=== PATIENT | female | born 1975 | race Caucasian/White ===

== ENCOUNTER 2019-05-16 17:16 | Inpatient (IN) | payer MEDICAID ==
[2019-05-16] MEDS ORDERED: BUTORPHANOL 2 MG INJ IV (18:30)
[2019-05-16] MEDS ORDERED: METHYLERGONOVINE 0.2 MG INJ IM ×2 (18:30→21:30)
[2019-05-16] MEDS ORDERED: CARBOPROST 250 MCG INJ IM ×2 (18:30→21:30)
[2019-05-16] MEDS ORDERED: OXYTOCIN 30 UNITS/LR 500 ML IV ×2 (18:30→21:30)
[2019-05-16] MEDS ORDERED: MISOPROSTOL 200 MCG TAB PR ×2 (18:30→21:30)
[2019-05-16 18:52] LABS: ADD MAN DIFF? NO
[2019-05-16] MEDS: LACTATED RINGER'S 1,000 ML IV ×2 (19:00→19:34)
[2019-05-16 19:01] LABS: WHITE BLOOD COUNT 11.9 10^3/ul (4.8-10.8)
[2019-05-16 19:01] LABS: BASOPHILS % 0.3 % (0.0-2.0); EOSINOPHILS % 0.1 % (0.0-7.0); HEMATOCRIT 40.1 % (37.0-47.0); HEMOGLOBIN 13.6 g/dl (12.0-16.0); LYMPHOCYTES # 1.2 10^3/ul (0.8-2.9); LYMPHOCYTES % 10.1 % (15.0-51.0); MEAN CORPUSCULAR HGB CONC 33.9 g/dl (32.0-37.0); MEAN CORPUSCULAR VOLUME 94.4 fl (82.0-101.0); MEAN PLATELET VOLUME 9.8 fl (7.4-10.4); MONOCYTE # 0.6 10^3/ul (0.3-0.9); MONOCYTES % 5.4 % (0.0-11.0); NEUTROPHIL # 9.7 10^3/ul (1.6-7.5); NEUTROPHILS % 81.7 % (39.0-77.0); PLATELET COUNT 254 10^3/UL (140-415); RED BLOOD COUNT 4.25 10^6/ul (4.20-5.40); RED CELL DISTRIBUTION WIDTH 15.9 % (11.5-14.5)
[2019-05-16 19:21] LABS: INR 0.98; PROTIME 13.1 Sec (11.9-14.9)
[2019-05-16 19:22] LABS: PARTIAL THROMBOPLASTIN TIME 25.9 Sec (23.0-35.0)
[2019-05-16] MEDS ORDERED: FENTAnyl 2MCG/ML-ROPIV 0.2% 100 ML (19:42)
[2019-05-16] MEDS ORDERED: FENTAnyl 50 MCG/ML VIAL (19:42)
[2019-05-16 19:54] LABS: HEPATITIS B SURFACE ANTIGEN NEGATIVE (NEGATIVE)
[2019-05-16] MEDS ORDERED: FENTAnyl 2MCG/ML-ROPIV 0.2% 100 ML BAG EPI (20:30)
[2019-05-16] MEDS ORDERED: NALOXONE (0.4 MG/ML) INJ IV (20:30)
[2019-05-16] MEDS: OXYTOCIN 30 UNITS/LR 500 ML IV ×3 (20:58→21:18)
[2019-05-16] MEDS: LIDOCAINE 1% (MPF) 30 ML INJ INJ (21:23)
[2019-05-16] MEDS ORDERED: ONDANSETRON 4 MG INJ IV (21:30)
[2019-05-16] MEDS ORDERED: NACL 0.9% 3 ML SYG IV (21:30)
[2019-05-16] MEDS ORDERED: OXYCODONE/ASPIRIN (4.88/325) TAB PO ×2 (21:30)
[2019-05-16] MEDS ORDERED: ACETAMINOPHEN 325 MG TAB PO (21:30)
[2019-05-17] MEDS: BENZOCAINE 20% 56 ML SPRAY TOP (01:27)
[2019-05-17] MEDS: LANOLIN HPA 1 PKT TOP (01:28)
[2019-05-17] MEDS: WITCH HAZEL/GLYCERIN PAD PR (01:28)
[2019-05-17 04:59] LABS: ADD MAN DIFF? NO
[2019-05-17 05:12] LABS: BASOPHILS % 0.3 % (0.0-2.0); EOSINOPHILS % 0.1 % (0.0-7.0); HEMATOCRIT 31.2 % (37.0-47.0); HEMOGLOBIN 11.1 g/dl (12.0-16.0); LYMPHOCYTES # 0.8 10^3/ul (0.8-2.9); LYMPHOCYTES % 6.1 % (15.0-51.0); MEAN CORPUSCULAR HGB CONC 35.6 g/dl (32.0-37.0); MEAN CORPUSCULAR VOLUME 92.9 fl (82.0-101.0); MEAN PLATELET VOLUME 10.1 fl (7.4-10.4); MONOCYTE # 0.8 10^3/ul (0.3-0.9); MONOCYTES % 5.6 % (0.0-11.0); NEUTROPHIL # 11.7 10^3/ul (1.6-7.5); NEUTROPHILS % 86.3 % (39.0-77.0); PLATELET COUNT 199 10^3/UL (140-415); RED BLOOD COUNT 3.36 10^6/ul (4.20-5.40); RED CELL DISTRIBUTION WIDTH 15.5 % (11.5-14.5)
[2019-05-17 05:12] LABS: WHITE BLOOD COUNT 13.5 10^3/ul (4.8-10.8)
[2019-05-17] MEDS: IBUPROFEN 600 MG TAB PO ×5 (05:40→23:54)
[2019-05-17] MEDS: SENNA/DOCUSATE NA (8.6MG/50MG) TAB PO ×2 (08:55→21:00)
[2019-05-17 14:57] LABS: RAPID PLASMA REAGIN NONREACTIVE (NR)
[2019-05-18] MEDS: IBUPROFEN 600 MG TAB PO ×3 (06:22→17:30)
[2019-05-18] MEDS: SENNA/DOCUSATE NA (8.6MG/50MG) TAB PO (09:10)
== END 2019-05-18 18:00 | disposition home or self-care (01) | DRG 807 ==
LOC: OBT 17:16 → L-D 17:16 → OBT 17:25 → L-D 17:25 → MS1 22:10
PROVIDERS: Obstetrics & Gynecology
PROC: 10E0XZZ Delivery of Products of Conception, External Approach (ICD-10-PCS; principal; 2019-05-16)
PROC: 0HQ9XZZ Repair Perineum Skin, External Approach (ICD-10-PCS; 2019-05-16)
DX: O70.0 First degree perineal laceration during delivery (principal); Z37.0 Single live birth; Z3A.39 39 weeks gestation of pregnancy; O69.81X0 Labor and delivery complicated by cord around neck, without compression, not applicable or unspecified
CPT/HCPCS: 62322; 85025; 85610; 85730; 86592; 86850; 86900; 86901; 87340